=== PATIENT | female | born 1950 | race Caucasian/White ===

== ENCOUNTER → 2019-08-28 | Outpatient (CLI) | payer OTHER ==
[~2019-08-28] VITALS: Ht 167.6 cm; Wt 117.9 kg
[~2019-08-28] MED LIST: BYSTOLIC10 MG PO; CELEBREX 200 M200 MG PO; COMPOUNDED CREAM; DIOVAN HCT 3201 EAC1 PO; FISH OIL 1,0001 EAC5 PO; HYDROCODON-ACE1 EAC7 PO; K-DUR10 MEQ PO; MULTIVITAMINS; NEXIUM 24HR20 M1 PO; NEXIUM40 MG PO; NORVASC5 MG PO; PREDNISONE 10 M10 M1 PO; PREMARIN0.625 MG PO; PROPECIA1 MG PO; PROSCAR 5MG TABL5 M1 PO; SYNTHROID112 MCG PO; SYNTHROID150 MCG PO; TOPROL XL100 MG PO; TYLENOL EXTRA500 MG PO; VITAMIN D3 PO; VITAMIN D31000 UNI2 PO; ZYRTEC10 M2 PO; cinnamon PO
--- NOTE | 2019-08-30 10:10 | P ---
[facility] [place] [address] PROCEDURE REPORT Name: KEISHA CASEY Room #: REG [facility] Henry#: [id number] Admission: 08/28/19 Attend Phys: Brandon Chavira Discharge: Date of : 54 Report #: [id number] THIS REPORT FOR: cc: Darshan Hernandes MD, Rene P. MD McElhinney, Christian C. MD ~ CC: Brandon Hernandes MD DATE OF SERVICE: 08/28/2019 PROCEDURE PERFORMED: Colonoscopy with biopsies. HISTORY OF PRESENT ILLNESS: The patient is a 69-year-old female who presents today for screening colonoscopy. Last colonoscopy was approximately in 2007. She denies any symptoms. No family history of colon cancer. DESCRIPTION OF PROCEDURE: The risks and benefits of the procedure were explained to the patient, those risks including but not limited to bleeding, perforation and the risk of sedation. She understood these risks and gave informed consent. Sedation was given using propofol per anesthesia. Next, a digital rectal exam was initially performed, which was normal. Next, using a standard Olympus colonoscope, the scope was placed in the patient's anus and advanced under direct vision to the cecum. The overall prep was excellent. The cecum and ileocecal valve were normal in appearance. Terminal ileum was intubated and normal in appearance. Ascending, transverse and descending colon were normal. Multiple diverticula were noted in the sigmoid colon, no evidence of inflammation, otherwise normal. The rectal mucosa showed one 4 mm sessile polyp. This was removed with cold forceps. On retroflexion, no abnormalities were noted. The scope was then withdrawn and the procedure terminated. The patient tolerated the procedure well. IMPRESSION: 1. Small rectal polyp. 2. Sigmoid diverticulosis. 3. Otherwise, normal colonoscopy. RECOMMENDATIONS: 1. Await biopsy results. 2. If polyp is hyperplastic, repeat in 10 years; if adenomatous polyp, repeat in [address] [address] PROCEDURE REPORT Name: KEISHA CASEY [id number] Admission: 08/28/19 Attend Phys: Brandon Chavira Discharge: Date of : 54 Report #: [id number] Thank you for allowing me to participate in his care. <ELECTRONICALLY SIGNED> By: Brandon Jorgensen MD 08/30/19 1010 [id number] [id number] Brandon Jorgensen MD /nt
--- NOTE | 2019-08-30 17:08 | PATH ---
[facility] [address] [place] [address] PATHOLOGY RPT PROCEDURE Name: LUIZA CASEY Room #: REG [facility] M.R.#: [id number] Admission: 08/28/19 Date of : 54 Discharge: Report #: [id number] Path Case #: [id number] [facility] Accession Number: [id number] . 01 Material submitted: . rectum - POLYP AT RECTUM . 01 Clinical history: . Screening; colon cancer; Covid . 02 Diagnosis: Polyp, rectum, endoscopic biopsy: - Hyperplastic polyp. - Negative for dysplasia. (IUV:pit 08/30/2019) QTP 08/30/2019 0951 Local . 02 Electronically signed: . Carin Clemons MD, Pathologist NPI- [id number] . 01 Gross description: . The specimen is received in formalin, labeled "Luiza Casey, polyp at rectum". Received are two segments of pale jaramillo soft tissue measuring 0.3 cm each in maximum dimensions. The specimen is submitted entirely in cassette A1. (CAA; 08/28/2019) QAC/QAC 08/28/2019 1714 Local . 02 Pathologist provided ICD-10: K62.1 . 02 CPT . 558220 Specimen Comment: A courtesy copy of this report has been sent to [phone], [phone] Specimen Comment: 2024, Specimen Comment: Report sent to ,DR HURT / DR RAMIREZ Performed at: [address], [place], [place] [id number] MD Saravanan Mendoza MD Phone: [phone] Performed at: [address] [id number] MD Carin Clemons MD Phone: [phone]
== END | disposition home or self-care (01) ==
LOC: GI 08:38
PROVIDERS: ATTEND Specialist
DX: Z12.11 Encounter for screening for malignant neoplasm of colon (principal); K62.1 Rectal polyp; K57.30 Diverticulosis of large intestine without perforation or abscess without bleeding; I10 Essential (primary) hypertension; K21.9 Gastro-esophageal reflux disease without esophagitis; Z87.891 Personal history of nicotine dependence; Z90.710 Acquired absence of both cervix and uterus; Z98.890 Other specified postprocedural states; Z79.899 Other long term (current) drug therapy; Z11.59 Encounter for screening for other viral diseases; Z88.0 Allergy status to penicillin; Z88.8 Allergy status to other drugs, medicaments and biological substances
CPT/HCPCS: 62110; 62900

== ENCOUNTER → 2019-10-25 | Outpatient (CLI) | payer OTHER | LOC: LAB 08:54 | PROVIDERS: ATTEND Nurse Practitioner | DX: Z20.828 Contact with and (suspected) exposure to other viral communicable diseases (principal) ==